=== PATIENT | male | born 1950 | race Caucasian/White ===

== ENCOUNTER 2024-02-26 13:45 | Emergency (ER) | payer MEDICARE ==
--- NOTE | 2024-02-26 15:18 | ED Physician Documentation ---
PD HPI MALE - Stated complaint Stated Complaint: MALE - Chief complaint Chief Complaint: UTI - History obtained from History obtained from: Patient - History of Present Illness Timing - onset: How many days ago (has had some urinary frequently and discomfort for 3-4 days, seen at Walk In with Dx UTI and Rx Bactrim. He has had doses for 1 1/2 days. CUlture pending. Unalbe to void the past 4-6 hours.) Timing - duration: Hours Timing - details: Gradual onset, Still present Associated symptoms: Dysuria, Unable to urinate Recently seen: Clinic (Walk IN 2 days ago) Review of Systems Constitutional: denies: Fever, Chills GI: denies: Nausea, Vomiting : reports: Hematuria (earlier today, but not with most recent void.) PD PAST MEDICAL HISTORY - Past Medical History Past Medical History: Yes Cardiovascular: None Respiratory: None Neuro: None Endocrine/Autoimmune: None GI: None : Other HEENT: None Psych: None Musculoskeletal: None Derm: None Other Past Medical History: rheumatic fever x2 as child. prostate ca - Past Surgical History Past Surgical History: Yes General: Hiatal hernia repair Ortho: Other - Present Medications Home Medications: Ambulatory Orders Medication Instructions Recorded Confirmed Phenazopyridine HCl [Pyridium] 100 mg PO TID PRN #15 tablet 02/26/24 - Allergies Allergies/Adverse Reactions: Allergies Allergy/AdvReac Type Severity Reaction Status Date / Time No Known Drug Allergies Allergy Verified 02/26/24 14:16 - Social History Does the pt smoke?: No Smoking Status: Never smoker Does the pt drink ETOH?: Yes ETOH Use: Wine, Beer PD ED PE NORMAL - Vitals Vital signs reviewed: Yes - General General: Alert and oriented X 3, Well developed/nourished, Other (appears uncomfortable duet o blader fullness. ) - Derm Derm: Normal color, Warm and dry - Neuro Neuro: Alert and oriented X 3, Normal speech Results - Vitals Vitals: Vital Signs - 24 hr 02/26/24 02/26/24 14:10 16:15 Temperature 37.2 C 36.8 C Heart Rate 69 84 Respiratory 18 15 Rate Blood Pressure 155/96 H 134/74 H O2 Saturation 96 98 Oxygen O2 Source Room air - Labs Labs: Laboratory Tests 02/26/24 15:48 Urine Color LT. YELLOW Urine Clarity HAZY Urine pH 6.0 Ur Specific [place] 1.020 Urine Protein TRACE Urine Glucose (UA) NEGATIVE Urine Ketones TRACE Urine Occult Blood LARGE H Urine Nitrite POSITIVE H Urine Bilirubin NEGATIVE Urine Urobilinogen 0.2 (NORMAL) Ur Leukocyte Esterase LARGE H Urine RBC 11-25 H Urine WBC >25 H Ur Squamous Epith Cells NONE SEEN Amorphous Sediment Few Urine Bacteria Many H Ur Microscopic Review INDICATED Urine Culture Comments INDICATED PD Medical Decision Making - ED course Complexity details: re-evaluated patient (discussion with pt that retention presume caused by infection and irritation with poor trigone relaxation as well as underlying BPH. He would prefer not pfeiffer, so just did in and out with 600 ml out. Feeling better. Hopefully cintinued abx and add pyridium will allow trigone relaxation. return PRN. ), considered differential (urine culture from 2 days ago is not resulted final as yet. Prelim is gram negative rods. Reasonable to continue Bactrim for another day or so pending final culture. He had retention wotut clots right here. ), d/w patient Departure - Departure Disposition: 01 Home, Self Care Clinical Impression: UTI (urinary tract infection), Acute urinary retention Condition: Stable Record reviewed to determine appropriate education?: Yes Instructions: ED Retention Urinary Male, ED UTI Cystitis Male Prescriptions: Phenazopyridine HCl [Pyridium] 100 mg PO TID PRN #15 tablet PRN Reason: Abdominal Pain Comments: You were having urinary retention with 5 to 600 mL of urine in the bladder. This likely is resulting from spasm and from the infection. Sometimes it can be clots that clog the way out but there did not seem to be clots present at the moment to account for it when we just drained your bladder. Given likelihood of irritation and spasm, hopefully you will be able to urinate on your own later. We can add an medication for discomfort of Tylenol or ibuprofen or both. In addition phenazopyridine helps with bladder discomfort. Return to the ER if unable to urinate and full bladder feeling. Continue with your current antibiotics. The urine culture is not resulted yet from your visit at the walk-in. It should be resulted tomorrow and they would call you if they need to change the antibiotic choice. I would suggest phenazopyridine 100 mg 3 times a day regularly for the next several days to week to help with urinary/bladder discomfort. It is available [id number] or prescription. Discharge Date/Time: 02/26/24 16:17
[2024-02-26 15:59] LABS: BILIRUBIN,URINE NEGATIVE (NEGATIVE); GLUCOSE, URINE (UA) NEGATIVE (NEGATIVE); KETONES,URINE (UA) TRACE mg/dL (NEGATIVE); LEUKOCYTE ESTERASE, URINE LARGE (NEGATIVE); NITRITE,URINE POSITIVE (NEGATIVE); OCCULT BLOOD,URINE LARGE (NEGATIVE); PROTEIN,URINE TRACE mg/dL (NEGATIVE); UROBILINOGEN,URINE 0.2 (NORMAL) E.U./dL (NORMAL)
[2024-02-26 16:01] LABS: CLARITY,URINE HAZY (CLEAR)
[2024-02-26] MEDS: ACETAMINOPHEN 500 MG TABLET PO STA (16:07)
[2024-02-26] MEDS: PHENAZOPYRIDINE 100 MG TABLET PO STA (16:08)
[2024-02-26 16:09] LABS: AMORPHOUS SEDIMENT,UR Few /LPF; BACTERIA,URINE Many /HPF (None Seen); SQUAMOUS EPITHELIAL CELL,UR NONE SEEN (<= Few); WBC,URINE >25 /HPF (0-3)
[2024-02-26 16:17] VITALS: BP 134/74; O2SAT 98
== END 2024-02-26 16:17 | disposition home or self-care (01) ==
LOC: ED 13:45
DX: N39.0 Urinary tract infection, site not specified (principal); N40.1 Benign prostatic hyperplasia with lower urinary tract symptoms; R33.8 Other retention of urine
CPT/HCPCS: 51701; 51798; 81001; 81003; 87077; 87086; 87181; 99283

== ENCOUNTER 2024-02-26 22:15 | Emergency (ER) | payer MEDICARE ==
[2024-02-26 22:32] VITALS: O2SAT 99
--- NOTE | 2024-02-26 23:21 | ED Physician Documentation ---
History of Present Illness - Stated complaint Stated Complaint: - Chief complaint Chief Complaint: Abd Pain - History obtained from History obtained from: Patient - Additonal information Additional information: Patient returns to the emergency department with chief complaint of urinary retention. He is already been seen earlier today for UTI and at that time refused catheter. Patient had already had some trouble with urinary retention before and states that he has not been able to urinate for the past several hours. He denies any other complaints at this time. No fevers or nausea at home. PD PAST MEDICAL HISTORY - Past Medical History Past Medical History: Yes Cardiovascular: None Respiratory: None Neuro: None Endocrine/Autoimmune: None GI: None : Other HEENT: None Psych: None Musculoskeletal: None Derm: None Other Past Medical History: UTI - Past Surgical History Past Surgical History: Yes General: Hiatal hernia repair Ortho: Other - Present Medications Home Medications: Ambulatory Orders Medication Instructions Recorded Confirmed Phenazopyridine HCl [Pyridium] 100 mg PO TID PRN #15 tablet 02/26/24 - Allergies Allergies/Adverse Reactions: Allergies Allergy/AdvReac Type Severity Reaction Status Date / Time No Known Drug Allergies Allergy Verified 02/26/24 22:31 - Social History Does the pt smoke?: No Smoking Status: Never smoker Does the pt drink ETOH?: Yes - POLST Patient has POLST: No PD ED PE NORMAL - Vitals Vital signs reviewed: Yes - General General: Alert and oriented X 3, Well developed/nourished, Other (Patient is in no distress but appears uncomfortable.) - HEENT HEENT: Atraumatic, EOMI, Moist mucous membranes - Neck Neck: Supple, no meningeal sign - Cardiac Cardiac: RRR, No murmur - Respiratory Respiratory: No respiratory distress, Clear bilaterally - Abdomen Abdomen: Soft, Non tender, Non distended - Derm Derm: Normal color, No rash, Other (Denies warm, diaphoretic.) - Extremities Extremities: No deformity, No edema - Neuro Neuro: Alert and oriented X 3 - Psych Psych: Normal mood, Normal affect Results - Vitals Vitals: Vital Signs - 24 hr 02/26/24 22:27 Temperature 36.6 C Heart Rate 100 Respiratory 20 Rate Blood Pressure 137/95 H O2 Saturation 99 Oxygen O2 Source Room air PD Medical Decision Making - ED course Complexity details: considered differential, d/w patient ED course: Chin catheter was placed and patient had output of about 750 cc of blood-tinged and orange urine. Small clots were noted in the bag as well. The patient stated he felt somewhat better but still having some burning in his bladder area and he was given a dose of Vicodin for this. Patient has already been prescribed antibiotics and Pyridium for home. We have discussed use of leg bag and the need for urology follow-up. Departure - Departure Disposition: Home, Self Care Clinical Impression: Urinary retention UTI (urinary tract infection) Qualifiers: Urinary tract infection type: acute cystitis Hematuria presence: with hematuria Qualified Code(s): N30.01 - Acute cystitis with hematuria Instructions: ED UTI Cystitis Male, ED Catheter Care Chin Follow-Up: Saw Macdonald MD [Provider Admit Priv/Credential] - Comments: A Chin catheter was placed to drain your bladder today. We will keep this in place for the next few days after which you should follow-up with your urologist Dr. Macdonald. Please call first thing tomorrow morning to make a follow-up appointment and be sure to let them know you are seen in the emergency department for urinary retention. Please also let him know you were new to the area and also prostate cancer. You will need to continue your antibiotics until the course is complete.
[2024-02-26] MEDS: HYDROcod/ACETAM 5/325 MG TABLET PO STA (23:27)
[2024-02-26 23:44] VITALS: BP 132/78
--- NOTE | 2024-03-01 17:16 | ED Physician Documentation ---
ED Addendum - Addendum Addendum: 03/01/24 17:14 The patient's urine culture came back showing E. coli greater than 100,000 CFU per mL. It is resistant to Bactrim and quinolones. Also amoxicillin ampicillin. It is sensitive to cephalosporins and nitrofurantoin. The patient had been prescribed Bactrim by the walk-in clinic and he was on that just started at the time of this urine collection. I would change the patient over to Keflex for 7 days. He will be sent to [facility] pharmacy. Nursing will notify the patient.
== END 2024-02-26 23:38 | disposition home or self-care (01) ==
LOC: ED 22:15
DX: N30.01 Acute cystitis with hematuria (principal); B96.20 Unspecified Escherichia coli [E. coli] as the cause of diseases classified elsewhere; N40.1 Benign prostatic hyperplasia with lower urinary tract symptoms; Z16.23 Resistance to quinolones and fluoroquinolones; Z16.29 Resistance to other single specified antibiotic
CPT/HCPCS: 51702; 51798; 81001; 87077; 87086; 87181; 99283; A9270; P9612; 51701; 81003